=== PATIENT | female | born 1970 | race Caucasian/White ===

== ENCOUNTER 2018-02-17 13:10 | Emergency (ER) | payer BC, OTHER ==
--- NOTE | 2018-02-17 14:28 | ED ---
HPI Chest Pain - HPI Summary HPI Summary: This is scribe Juan To documenting for attending Shmuel Quiros MD. This patient is a 47 year old F presenting to [facility] with a chief complaint of chest discomfort yesterday starting at 13:00 yesterday that lasted for 5 minutes. Patient reports palpations for several weeks, intermittent mild SOB, feeling weird like an out-of-body experience, and flushing. Patient denies diaphoresis, nausea, feelings of syncope, and abdominal pain. She says that the palpations and SOB occur at odd times, not necessarily when going to bed. Patient always walks up 4 flights of stairs at work, but lately she is more tired than usual afterwards. She has no PMHx of HTN or HLD but has had a melanoma removed before. She has had C-sections. Patient does not smoke, occasionally uses alcohol, and does not use any other substances. I, Dr. Quiros, personally performed the services described in this documentation as scribed in my presence, and it is both accurate and complete. - History of Current Complaint Chief Complaint: EDShortnessOfBreath Time Seen by Provider: 02/17/18 14:17 Hx Obtained From: Patient Onset/Duration: Started Hours Ago - 13:00 yesterday for 5 minutes Timing: Intermittent, Lasting Minutes - minutes Initial Severity: Mild Current Severity: None Pain Intensity: 0 Pain Scale Used: 0-10 Numeric Character: Other: - Chest discomfort Associated Signs and Symptoms: Positive: Chest Pain, Shortness of Breath, Palpitations, Other: - "feeling weird out of body experience" and flushing. Denies feelings of syncope. Negative: Diaphoresis, Nausea, Abdominal Pain - Allergy/Home Medications Allergies/Adverse Reactions: Allergies Allergy/AdvReac Type Severity Reaction Status Date / Time No Known Allergies Allergy Verified 02/17/18 14:18 PMH/Surg Hx/FS Hx/Imm Hx Respiratory History: Denies: Hx Asthma History: Reports: Hx Kidney Stones - several known stones Sensory History: Reports: Hx Contacts or Glasses - inst given Denies: Hx Hearing Aid Opthamlomology History: Reports: Hx Contacts or Glasses - inst given Neurological History: Comment Only: Hx Headaches - lots of slight headaches Psychiatric History: Reports: Hx Anxiety - was on anxiety med in past - Cancer History Cancer Type, Location and Year: [place] - Surgical History Surgery Procedure, Year, and Place: 1987 1990 1998 1999 [facility] SE[facility] LAST WITH [facility] [place]. 2003 [facility] [place]. 2010 [facility] [place]. 2013 [facility] [place] Hx Anesthesia Reactions: Yes - SEE NSG NOTE Infectious Disease History: No Infectious Disease History: Denies: Traveled Outside the [place] in Last 30 Days - Family History Known Family History: Positive: Cardiac Disease, Diabetes, Other - Cancer - Social History Substance Use Type: Reports: Prescribed Review of Systems Positive: Other - flushing. Negative: Skin Diaphoresis Positive: Palpitations - for several weeks, Chest Pain - Chest discomfort. Positive: Shortness Of Breath - intermittant and mild Negative: Nausea Neurological: Other - "feeling weird out of body experience" Negative: Syncope - Denies feeling near-syncope All Other Systems Reviewed And Are Negative: Yes Physical Exam - Summary Physical Exam Summary: VITAL SIGNS: Reviewed. GENERAL: Patient is a well-developed and nourished FEMALE who is lying comfortable in the stretcher. Patient is not in any acute respiratory distress. HEAD AND FACE: No signs of trauma. No ecchymosis, hematomas or skull depressions. No sinus tenderness. EYES: PERRLA, EOMI x 2, No injected conjunctiva, no nystagmus. EARS: Hearing grossly intact. Ear canals and tympanic membranes are within normal limits. MOUTH: Oropharynx within normal limits. NECK: Supple, trachea is midline, no adenopathy, no JVD, no carotid bruit, no c- spine tenderness, neck with full ROM. CHEST: Symmetric, no tenderness at palpation LUNGS: Clear to auscultation bilaterally. No wheezing or crackles. CVS: Regular rate and rhythm, S1 and S2 present, no murmurs or gallops appreciated. ABDOMEN: Soft, non-tender. No signs of distention. No rebound no guarding, and no masses palpated. Bowel sounds are normal. EXTREMITIES: FROM in all major joints, no edema, no cyanosis or clubbing. NEURO: Alert and oriented x 3. No acute neurological deficits. Speech is normal and follows commands. SKIN: Dry and warm Triage Information Reviewed: Yes Vital Signs On Initial Exam: Initial Vitals Temp Pulse Resp BP Pulse Ox 99.8 F 109 20 161/98 96 02/17/18 13:20 02/17/18 13:20 02/17/18 13:20 02/17/18 13:20 02/17/18 13:20 Vital Signs Reviewed: Yes Diagnostics - Vital Signs Vital Signs Temp Pulse Resp BP Pulse Ox 02/17/18 13:20 99.8 F 109 20 161/98 96 - Laboratory Result Diagrams: 02/17/18 14:56 02/17/18 14:56 Lab Statement: Any lab studies that have been ordered have been reviewed, and results considered in the medical decision making process. - Radiology Chest X-Ray Radiology Interpretation Completed By: Radiologist - 15:15.NO EVIDENCE FOR ACUTE DISEASE. ED Physician has reviewed this report. - EKG No standard instances Cardiac Rate: Tachycardia - 101 BPM EKG Rhythm: Sinus Rhythm ST Segment: Normal EKG Interpretation: 14:16. No ST elevation. Normal axis. Chest Pain Course/Dx - Course Assessment/Plan: This patient is a 47 year old F presenting to [facility] with a chief complaint of chest discomfort yesterday starting at 13:00 yesterday that lasted for 5 minutes. Patient reports palpations for several weeks, intermittent mild SOB, feeling weird like an out-of-body experience, and flushing. Patient denies diaphoresis, nausea, feelings of syncope, and abdominal pain. She says that the palpations and SOB occur at odd times, not necessarily when going to bed. Patient always walks up 4 flights of stairs at work, but lately she is more tired than usual afterwards. She has no PMHx of HTN or HLD but has had a melanoma removed before. She has had C-sections. Patient does not smoke, occasionally uses alcohol, and does not use any other substances. Chest X-Ray: NO EVIDENCE FOR ACUTE DISEASE. EKG: Tachycardia [address] BPM. Sin[address]. No [address] elevation. Normal axis. Test results without any significant abnormalities except Troponin 0.00. D-dimer was less than 200. Therefore, I have no suspicion for ACS or PE. Since the troponin is negative and D-dimer is negative. She has no significant commorbidities for ACS. I discussed the findings with the apteitn who will follow up with her PCP. She will benefit from a stress test as an out-patient. She is hemodynamically stable , A&O x3. - Diagnoses Provider Diagnoses: Atypical chest pain Discharge - Sign-Out/Discharge Documenting (check all that apply): Patient Departure - D/C - Discharge Plan Condition: Stable Disposition: HOME Patient Education Materials: Chest Pain (ED) Referrals: Armida Butcher MD [Primary Care Provider] - 3 Days Additional Instructions: FOLLOW UP WITH YOUR PRIMARY CARE PROVIDER WITHIN ONE WEEK FOR HIGH BLOOD PRESSURE NOTED TODAY. RETURN TO THE EMERGENCY DEPARTMENT FOR CHANGING OR WORSENING SYMPTOMS.
[2018-02-17 15:09] LABS: ABS Basophils 0.1 10^3/ul (0-0.2); ABS Eosinophils 0 10^3/ul (0-0.6); ABS Lymphocytes 2.1 10^3/ul (1.0-4.8); ABS Monocytes 0.5 10^3/ul (0-0.8); ABS Neutrophils 5.9 10^3/ul (1.5-7.7); ABS Nucleated RBC 0 10^3/ul; Eosinophil % 0.6 % (0-6); Hematocrit 46 % (35-47); Hemoglobin 15.6 g/dl (12.0-16.0); Lymphocyte % 24.5 % (25-47); Mean Corpuscular HGB Conc 34 g/dl (31-36); Mean Corpuscular Hemoglobin 29 pg (27-31); Mean Corpuscular Volume 84 fL (80-97); Mean Platelet Volume 8.3 um3 (7.4-10.4); Nucleated Red Blood Cells % 0.3; Platelet Count 191 10^3/ul (150-450); Red Blood Count 5.47 10^6/ul (4.00-5.40); Red Cell Distribution Width 14 % (10.5-15); White Blood Count 8.6 10^3/ul (3.5-10.8)
--- NOTE | 2018-02-17 15:19 | RAD ---
INDICATION: Chest pain. COMPARISON: There are no prior studies available for comparison. TECHNIQUE: A portable view of the chest was obtained. FINDINGS: Cardiac and mediastinal contours appear to be within normal limits. The lungs are clear. No pleural effusion is seen. IMPRESSION: NO EVIDENCE FOR ACUTE DISEASE.
[2018-02-17 15:26] LABS: EGFR Non-African American 83.4 (>60)
[2018-02-17 16:49] VITALS: BP 120/78
== END 2018-02-17 16:47 | disposition home or self-care (01) ==
LOC: ED 13:10
DX: R07.89 Other chest pain (principal); R06.02 Shortness of breath; R00.0 Tachycardia, unspecified
CPT/HCPCS: 36415; 71045; 80053; 84484; 85025; 85379; 86140; 93005; 99282

== ENCOUNTER 2021-07-22 20:20 | Observation (INO) ==
[2021-07-22] MEDS ORDERED: Lactated Ringers 1000 ml BAG 1,000 ML IV ONE (21:27)
[2021-07-22] MEDS ORDERED: Ondansetron 4 mg VIAL 2 MG/ML 2 ml VIAL IV ONE (21:28)
[2021-07-22 22:05] LABS: ABS Basophils 0.1 10^3/ul (0-0.2); ABS Lymphocytes 2.1 10^3/ul (1.0-4.8); ABS Monocytes 0.5 10^3/ul (0-0.8); Eosinophil % 0.4 %; Hematocrit 44 % (35-47); Hemoglobin 15.3 g/dL (12.0-16.0); Lymphocyte % 16.8 %; Mean Corpuscular HGB Conc 35 g/dL (31-36); Mean Corpuscular Hemoglobin 29 pg (27-31); Mean Corpuscular Volume 83 fL (80-97); Nucleated Red Blood Cells % 0.1; Platelet Count 231 10^3/uL (150-450); Red Blood Count 5.29 10^6 /uL (3.70-4.87); Red Cell Distribution Width 14 % (10-15); White Blood Count 12.8 10^3/uL (3.5-10.8)
[2021-07-22 22:22] LABS: Albumin 4.6 g/dL (3.2-5.2); Albumin/Globulin Ratio 1.5 (1-3); C Reactive Protein 2.56 mg/L (<8.01); Calcium 9.3 mg/dL (8.6-10.3); Globulin 3.1 g/dL (2-4); Potassium 3.9 mmol/L (3.5-5.0); Total Bilirubin 1.5 mg/dL (0.2-1.0); Total Protein 7.7 g/dL (6.4-8.9); eGFR CKD-EPI 74.5 (>60)
[2021-07-22 22:28] LABS: Urine Appearance Clear; Urine Bilirubin Negative (Negative); Urine Blood Negative (Negative); Urine Color Amber; Urine Glucose Negative (Negative); Urine Ketones Trace (Negative); Urine Nitrite Negative (Negative); Urine Protein 1+(30 mg/dL) (Negative); Urine Specific Gravity 1.021 (1.002-1.030); Urine Urobilinogen Positive (Negative)
[2021-07-22] MEDS ORDERED: Iohexol 300 (CONTRAST) 10 ML SDV IV ONE (22:31)
[2021-07-22 22:47] LABS: Urine Bacteria 1+ (Absent); Urine Red Blood Cell 1+(3-5/hpf) (Absent); Urine Squamous Epithelial Cell Present (Absent); Urine White Blood Cell Trace(0-5/hpf) (Absent)
[2021-07-23] MEDS ORDERED: Ondansetron 4 mg VIAL 2 MG/ML 2 ml VIAL IV PRN (01:58)
[2021-07-23] MEDS ORDERED: HYDROmorphone 1 MG/1 ML SYRINGE IV SLOW PU PRN (01:58)
[2021-07-23] MEDS ORDERED: Lactated Ringers 1000 ml BAG 1,000 ML IV SCH (02:00)
[2021-07-23 11:46] VITALS: BP 117/86
== END 2021-07-23 17:52 | disposition home or self-care (01) ==
LOC: ED 20:20 → EDHOLD 20:20 → SSU 07-23 17:51
PROVIDERS: ADMIT Surgery; ATTEND Surgery